=== PATIENT | male | born 1985 | race Asian ===

== ENCOUNTER 2017-03-26 12:20 | Emergency (ER) | payer SELFPAY ==
--- NOTE | 2017-03-26 13:07 | NUR ---
PATIENT CALLED FROM [facility]; NO ANSWER; PATIENT LEFT WITHOUT BEING SEEN BY DR. MARK. NO FURTHER CARE PROVIDED FOR PATIENT.
== END 2017-03-26 13:07 | disposition left against medical advice (07) ==
LOC: MED 12:20
DX: Z53.21 Procedure and treatment not carried out due to patient leaving prior to being seen by health care provider (principal)